=== PATIENT | female | born 1945 | race Caucasian/White ===

== ENCOUNTER 2019-07-24 17:25 | Inpatient (IN) | payer OTHER ==
[~2019-07-24] VITALS: Ht 152.4 cm; Wt 63.5 kg
[2019-07-24 17:36] VITALS: Ht 152.4 cm; Wt 63.5 kg
--- NOTE | 2019-07-24 17:42 | NUR ---
PER MEDIC PT WAS AT HOME TAKING A SHOWER THEN SHE USED THE RESTROOM AND NOTICED "BRIGHT RED BLOOD". PT STS THIS HAPPENED THIS AFTERNOON. PT STS THAT SHE DOES HAVE A HEADACHE. PT STS THAT SHE IS ALSO HAVING BACK PAIN AND SHOULDER PAIN. PT DENIES FALLING OR INJURING HER BACK/NECK/SHOULDERS. PT IS ACTIVELY CRYING ABOUT HER SON LOSING HIS . PT STS THAT SHE CHANGED HER MEDICATION FROM WARFARIN TO ELIQUIS FOR ABOUT ONE YEAR. PT STS THAT SHE HAS NEVER HAD BLEEDING BEFORE. PT STS THAT SHE HAD ABDOMINAL PAIN LAST NIGHT BUT HAD NO BLEEDING. PT IS PALE, COOL. PT IS ALERT AND ORIENTED, SPEAKING NI CLEAR AND FULL SENTENCES. WILL CONTINUE TO MONITOR.
--- NOTE | 2019-07-24 18:11 | NUR ---
LAB AT BEDSIDE. EKG IN PROGRESS.
[2019-07-24 18:49] LABS: CALCIUM 7.5 mg/dL (8.5-10.1); CARBON DIOXIDE 24.5 mmol/L (21-32); CHLORIDE SERUM 113 mmol/L (98-107); CREATININE SERUM 0.8 mg/dL (0.6-1.0); GLUCOSE SERUM 160 mg/dL (74-106); POTASSIUM SERUM 4.7 mmol/L (3.5-5.1); SODIUM SERUM 147 mmol/L (136-145)
[2019-07-24 18:54] LABS: ALBUMIN 2.8 g/dL (3.4-5.0); ALKALINE PHOSPHATASE 61 U/L (46-116); ALT/SGPT 25 U/L (14-59); AST/SGOT 17 U/L (15-37); BILIRUBIN TOTAL 0.6 mg/dL (0.20-1.00); CHOLESTEROL 111 mg/dL (<200); HDL CHOLESTEROL 36 mg/dL (40-60); MAGNESIUM 1.9 mg/dL (1.8-2.4); PHOSPHOROUS 4.1 mg/dL (2.5-4.9); TOTAL PROTEIN, SERUM 5.7 g/dL (6.4-8.2)
[2019-07-24 18:57] LABS: BASOPHIL % 0.2 % (0-2); PLATELET COUNT 207 x10^3mcL (130-400)
[2019-07-24 18:58] LABS: RED CELL DISTRIBUTION WIDTH 15.1 % (11.5-14.5)
--- NOTE | 2019-07-24 19:15 | NUR ---
RECEIVED REPORT FROM DUC ROBERTS RN, I WILL BE ASSUMING FURHTER CARE OF THIS PATIENT.
--- NOTE | 2019-07-24 19:16 | NUR ---
REPORT GIVEN TO MEKA JIMENEZ TO ASSUME CARE OF PT.
[2019-07-24 19:18] LABS: UA SPECIFIC GRAVITY 1.025 (1.005-1.035); microscopic required? YES; urine erythrocyte 3+ (NEGATIVE)
--- NOTE | 2019-07-24 19:20 | NUR ---
PT TAKEN TO US VIA GURNEY BY [employer]. PT IN NO DISTRESS.
--- NOTE | 2019-07-24 19:32 | NUR ---
PT RETURNED TO ER FLOOR FROM US VIA GURNEY WITHOUT INCIDIENT.
--- NOTE | 2019-07-24 20:31 | NUR ---
INFUSING PHENYLEPHRINE DRIP AT THIS TIME. INFUSING AT 50MCG/MIN BP:77/54 MAP:61. WILL CONT TO MONITOR.
--- NOTE | 2019-07-24 20:57 | NUR ---
DR PELAYO AT BEDSIDE DICUSSING PLAN OF CARE. PT AWARE SHE WILL BE HOPSITALIZED TO STABLIZE HER BLOOD PRESSURE AND BLEEDING.
--- NOTE | 2019-07-24 21:01 | NUR ---
PHENYLEPHIRINE TITRATED TO 75MCG/MIN (22.5ML/HR) INFUSING NO PROB TO LAC, NO INFILTRATION OR PAIN NOTED. BP: 84/51 MAP:63 NS BOLUS INFUSING TO RAC NO INFILTRATION OR PAIN NOTED AT IV SITE. PT IS AAOX4, NO DISTRESS NOTED, RESP E/U, SKIN INTACT. PT ON FULL CM, NSR, WILL CONT TO MONITOR.
--- NOTE | 2019-07-24 21:30 | NUR ---
GAVE REPORT TO NEAL JIMENEZ IN ICU WHO WILL BE ASSUMING FURTHER CARE OF THIS PATIENT.
--- NOTE | 2019-07-24 22:24 | NUR ---
Received pt alert and oriented x4. No distress noted. Kept clean and dry. All needs attended and anticipated. Seen and examined by Dr. Alvarado with new orders. New orders noted and carried out. Admission care rendered,pt cooperative and very polite at this time. Pt still ongoing NS 150ml/hr and Brandon synephrine 50mcg/min at this time. All meds given as ordered. Will continue to monitor.
--- NOTE | 2019-07-24 23:13 | NUR ---
Spoke to Dr. Hanson and updated him on pt status. stated that he will see the patient in the morning.
[2019-07-24 23:22] VITALS: BP 98/54
[2019-07-25 00:07] LABS: BASOPHIL % 1.1 % (0-2); PLATELET COUNT 200 x10^3mcL (130-400)
[2019-07-25 00:13] LABS: RED CELL DISTRIBUTION WIDTH 15.3 % (11.5-14.5)
[2019-07-25 03:52] VITALS: BP 103/75
[2019-07-25 05:49] LABS: BASOPHIL % 1.1 % (0-2); PLATELET COUNT 192 x10^3mcL (130-400)
[2019-07-25 05:50] LABS: RED CELL DISTRIBUTION WIDTH 15.5 % (11.5-14.5)
[2019-07-25 06:02] LABS: CALCIUM 7.1 mg/dL (8.5-10.1); CARBON DIOXIDE 22.1 mmol/L (21-32); CHLORIDE SERUM 115 mmol/L (98-107); CREATININE SERUM 0.7 mg/dL (0.6-1.0); GLUCOSE SERUM 105 mg/dL (74-106); POTASSIUM SERUM 4.4 mmol/L (3.5-5.1); SODIUM SERUM 146 mmol/L (136-145)
[2019-07-25 07:15] VITALS: BP 102/71
--- NOTE | 2019-07-25 07:15 | NUR ---
RC'D PT RESTING IN BED WITH NO APPARENT SIGNS OF DISTYRESS. PT ALERT/AWAKE. PT A/A/O/X4, SPEECH CLEAR AND APPROPRIATE. PT DENIES DIZZINESS/BAILEY. PT ABLE TO FOLLOW VERBAL COMMANDS AND ABLE TO MAKE NEEDS KNOWN. PUPILS 3MM AND BRISK BILAT. PERRLA. NO FACIAL DROOP NOTED. EENT FREE OF DRAINAGE. RESP E/U. LUNGS CTA. ON RA, PT DENIES SOB. SPO2 96%, NO RESP DISTRESS NOTED. AFIB ON EQUIPMENT WASHER. PT DENIES CP. HOLA-SYNEPHRINE INFUSING AT 100MCG/MIN. PALP PULSES, NO EDEMA NOTED. SKIN WARM TO TOUCH AND CONSISTENT WITH ETHNICITY. CAP REFILL <3. D5NS INFUSING @100. AMBULATORY. PT NPO AT THIS TIME. ABDOMEN SOFT AND NONTENDER. ACTIVE BS. DENIES N/V. NO BM AT THIS TIME. PT VOIDS FREELY, DENIES BURNING AT THIS TIME. SKIN W/D/I. IV TO RAC/LAC INTACT AND PATENT, DRESSING CDI. BED IN LOWEST POSIITON. WILL CONT TO MONITOR
--- NOTE | 2019-07-25 09:35 | NUR ---
BLOOD TRANSFUSION COMPLETE AT THIS TIME. PT ASYMPTOMATIC. VSS. FAMILY PRESENT AT BEDSIDE. WILL CONT TO MONITOR
--- NOTE | 2019-07-25 10:07 | NUR ---
TOOL REPAIR TECHNICIAN PRESENT AT BEDSIDE
[2019-07-25 10:18] LABS: PLATELET COUNT 161 x10^3mcL (130-400)
[2019-07-25 10:25] LABS: RED CELL DISTRIBUTION WIDTH 15.4 % (11.5-14.5)
[2019-07-25 11:00] VITALS: BP 114/74
--- NOTE | 2019-07-25 11:20 | NUR ---
DR FRITZ AT BEDSIDE TO ASSESS PATIENT. PATIENT UPDATE AND POC DISCUSSED BEDSIDE WITH PATIENT AND HER . ALL QUESTIONS AND CONCERNS ADDRESSED. NEW ORDER RECEIVED FOR 1 LITER NS BOLUS. WILL CARRY OUT ORDER.
[2019-07-25 11:23] LABS: BAND NEUTROPHIL 2 % (0-10); BASOPHIL 0 % (0-2); MONOCYTE 2 % (0-7); SEGMENTED NEUTROPHILS 63 % (37-75)
--- NOTE | 2019-07-25 12:00 | NUR ---
NS BOLUS INITIATED AT THIS TIME PER MD ORDER. CURRENT VS FOLLOWED : BP 99/73 (82), HR99, R24, SPO2 97%. WILL CONT TO MONITOR
--- NOTE | 2019-07-25 12:37 | NUR ---
PT HAD APPROX 100ML OF DARK STOOL. PT CLEANED AT THIS TIME. DR AJ NOTIFIED AND MADE AWARE.
--- NOTE | 2019-07-25 12:58 | NUR ---
DR AJ AND MED TEAM AT BEDSIDE FOR PROCEDURE. WILL CONT TO MONITOR
--- NOTE | 2019-07-25 13:37 | NUR ---
PROCEDURE COMPLETE AT THIS TIME. VSS. PT ON 2L O2 VIA NC, SPO2 100%. RESP E/U. NO APPARENT S/S OF DISTRESS. WILL CONT TO MONITOR
--- NOTE | 2019-07-25 13:38 | NUR ---
DR AJ UPDATING PTS OF FINDINGS OF PROCEDURE AT THIS TIME. PT AND FAMILY UPDATED ON POC. ALL QUESTIONS AND CONCERNS ADDRESSED. WILL CONT TO MONITOR
--- NOTE | 2019-07-25 13:39 | NUR ---
DR AJ SPOKE WITH PATIENT'S AND PROVIDED UPDATE OF EGD PROCEDURE.
--- NOTE | 2019-07-25 14:01 | NUR ---
PATIENT'S BP 124/67, MAP 86. HOLA TITRATED FROM 40 MCG TO 20 MCG. WILL MONITOR PATIENT CLOSELY.
--- NOTE | 2019-07-25 14:18 | NUR ---
DR MORALES AT BEDSIDE TO ASSESS PATIENT. PATIENT PROVIDED UPDATE WITH POC DISCUSSED.
[2019-07-25 15:30] VITALS: BP 97/52
--- NOTE | 2019-07-25 18:02 | NUR ---
DEVELOPING MACHINE TENDER PRESENT AT BEDSIDE FOR BLOOD DRAW
[2019-07-25 18:43] LABS: PLATELET COUNT 151 x10^3mcL (130-400)
[2019-07-25 18:44] LABS: RED CELL DISTRIBUTION WIDTH 15.3 % (11.5-14.5)
[2019-07-25 19:20] LABS: BAND NEUTROPHIL 0 % (0-10); BASOPHIL 0 % (0-2); MONOCYTE 4 % (0-7); PLATELET MORPHOLOGY PLATELETS NORMAL; SEGMENTED NEUTROPHILS 69 % (37-75); rbc morphology (normal/abnorm) NORMAL (NORMAL)
--- NOTE | 2019-07-25 19:20 | NUR ---
REPORT GIVEN TO RIOS JIMENEZ. ALL QUESTIONS AND CONCERNS ADDRESSED.
--- NOTE | 2019-07-25 19:43 | NUR ---
RECEIVED REPORT FROM ALESIA JIMENEZ. PT IS ALERT AND ORIENTED X4. LETHARGIC. PUPILS REACTIVE TO LIGHT. PT IS BREATHING E.U ON RA. LUNG SOUNDS CLEAR TO BILATERAL UPPER LOBES, DIMINISHED TO BILATERAL LOWER LOBES. S1 S2 HEART SOUNDS AUSCULTATED. IN STABLE A FIB. PULSES MODERATE X4. CAP REFILL <3 SECS X4. SKIN IS WARM AND PALE. PERIPHERAL IV TO RIGHT AND LEFT AC PATENT, DRESSING CDI. PROTONIX INFUSING AT 10 ML/HR AND D5 NS INFUSING AT 100 ML/HR. ABD IS SOFT AND ROUNDED WITH ACTIVE BOWEL SOUNDS X4Q. PT VOIDS FREELY USING BEDSIDE COMMODE. SKIN INTACT. ALL QUESTIONS AND CONCERNS ANSWERED.
--- NOTE | 2019-07-25 19:50 | NUR ---
PT COMPLAINING OF PAIN TO HER THROAT, AND REQUESTING MEDICATIONS. PRN MORPHINE PROVIDED. EDUCATED ON SIDE EFFECTS. CALL LIGHT WITHIN REACH. WILL CONTINUE TO MONITOR.
--- NOTE | 2019-07-25 21:51 | NUR ---
MEDICATED PT WITH NORCO. PT COMPLAINING OF PAIN TO THROAR FROM EGD. WILL CONTINUE TO MONITOR.
--- NOTE | 2019-07-26 02:00 | NUR ---
INITIATED BLOOD TRANSFUSION PER DR ORDER. TEMP 98.2.PULSE 98, BP: 89/59, RR: 17, O2: 98%. WILL CONTINUE TO MONITOR FOR ADVERSE EFFECTS.
[2019-07-26 02:14] LABS: ovalocyte/elliptocyte 1+; rbc morphology (normal/abnorm) ABNORMAL (NORMAL)
--- NOTE | 2019-07-26 04:00 | NUR ---
BLOOD TRANSFUSION COMPLETED. VITAL SIGNS INCLUDE TEMP: 98.4, PULSE: 70, BP: 95/52, RR: 19, O2: 98%. NO ADVERSE EFFECTS NOTED.
[2019-07-26 05:29] LABS: BASOPHIL % 0.4 % (0-2)
[2019-07-26 05:30] LABS: PLATELET COUNT 124 x10^3mcL (130-400); RED CELL DISTRIBUTION WIDTH 15.4 % (11.5-14.5)
[2019-07-26 05:44] LABS: CALCIUM 7.3 mg/dL (8.5-10.1); CARBON DIOXIDE 23.8 mmol/L (21-32); CHLORIDE SERUM 117 mmol/L (98-107); CREATININE SERUM 0.6 mg/dL (0.6-1.0); GLUCOSE SERUM 78 mg/dL (74-106); MAGNESIUM 2.7 mg/dL (1.8-2.4); PHOSPHOROUS 2.4 mg/dL (2.5-4.9); POTASSIUM SERUM 3.8 mmol/L (3.5-5.1); SODIUM SERUM 148 mmol/L (136-145)
[2019-07-26 07:55] VITALS: BP 93/53
--- NOTE | 2019-07-26 08:03 | NUR ---
RAC IV REMOVED AT THIS TIME. CATHETER PARTIALLY OUT OF SKIN, KINKED. GAUZE AND TAPE IN PLACE OVER SITE, CATHETER OF IV INTACT. NO S/S LOCAL INFECTION AT IV REMOVAL SITE.
--- NOTE | 2019-07-26 09:45 | NUR ---
PT C/O NAUSEA, ADMINISTERED 12.5 MG PHENERGAN. PT C/O SEVERE PAIN TO IV SITE, IV REMOVED. PT HAS NO IV ACCESS AT THIS TIME. CATHETER FOR RAC IV INTACT, GAUZE AND TAPE PUT OVER SITE. PT REPORTS ALLEVIATION OF PAIN. WILL CONTINUE TO MONITOR.
--- NOTE | 2019-07-26 09:45 | NUR ---
2 IV START ATTEMPTS MADE BY RN, BOTH UNSUCCESSFUL.
--- NOTE | 2019-07-26 10:35 | NUR ---
ASPHALT DISTRIBUTOR TENDER AT BEDSIDE DOING CARDIAC ECHO.
--- NOTE | 2019-07-26 12:28 | NUR ---
PT TRANSFERRING TO [facility], PT STABLE AT THIS TIME. REPORT GIVEN TO INSURANCE HEALTHCARE CONSULTANT.
[2019-07-26 12:35] VITALS: BP 103/68
--- NOTE | 2019-07-26 12:37 | NUR ---
RECEIVED PT FROM ICU, AMBULATED FROM WC TO BED WITH MINIMAL ASSISTANCE, COMPLAINING OF NAUSEA, ZOFRAN IVP GIVEN IN ICU BEFORE PT WAS TRANSPORTED, NO RESPRIATORY DISTRESS NOTED, LUNG SOUNDS CTA, TOLERATING RA, A+OX4, PULSES MODERATE AND EQUAL KIMBERLEE, NO EDEMA NOTED, A FIB, SKIN INTACT, TOLERATING CLEAR LIQUID DIET, BOWEL SOUNDS ACTIVE, IV IN DILIA WITH D5NS @ 40 ML/HR, SITE WNL, VOIDING FREELY, CALM AND COOPERATIVE AT THIS TIME, VS STABLE, CALL LIGHT WITHIN REACH.
--- NOTE | 2019-07-26 14:14 | NUR ---
Initial Nutrition Assessment: IC03/A KANDI [place]AR[place]O IA HR Dx: Rectal bleeding PMHx: AFIB, CAD, HTN PSHx: none Labs: NA 148H, P 2.4L, HGB 8.5L Meds: Ativan, cephulac, D 5%, morphine Diet: Clear liquid PO Intake: (07/25) dinner (clear liquid) 60% Ht: 152.4 cm (60") Wt: 63.5 kg (140#) BMI: 27.3 kg/m2 Bed scale: 63.5 kg IBW: 100# (45 kg) %IBW: 140 UBW: unable to access Age: 73/F Food Allergies: NKFA Skin: intact Hakeem: 23 Edema: none GI: dark tarry liquid stool Last BM: 07/26 Per H&P, Pt is a 73 YO female h/o AFIB was on Coumdin and recently switched to Eliquis. She presented to the ED with rectal bleedings ongoing throughout the day. RDN Visit (07/26): Per BARBARA Mike, patient's diet has been changed to full liquid by Dr. Hanson. Patient is drinking clear liquids. Dr. Hanson recommended small frequent feedings due to history of previous GI surgeries. Problem with: N/V/D/C: none at this time per RN, liquid stools d/t medications per Dr. Hanson Problems with: Chewing/Swallowing: no Current appetite: unable to access Recent wt change: unable to access %wt change: n/a Vitamin/Supplement use: unable to access Special diet at home: unable to access Physical activity: unable to access Nutrition education given: not possible at this time d/t patient condition Food-drug interactions: none Education given: n/a Estimated Nutritional Needs Based on current body weight 63.5 kg Energy: 0237-6810 kcal/d (25-30 kcal/kg) Protein: 76-89 g/d (1.2-1.4 g/kg) - preserve LBM, rectal bleeding Fluid: 6837-1178 ml/d (1 ml/kcal) or per doctor Nutrition Diagnosis 1. Increased nutrient needs related to rectal bleeding as evidenced by estimated calorie and protein needs. Intervention 1. Recommend continuing full liquid diet. Ensure Enlive will be given in between meals instead of with meals. Discussed recommendations with Dr. Hanson. Monitor/Evaluate Goal: PO intake at least 75% of estimated needs Monitor: PO intake, Labs, GI function F/U in 2-3 days as high risk 07/28-
--- NOTE | 2019-07-26 14:14 | NUR ---
1. Recommend continuing full liquid diet. Ensure Enlive will be given in between meals instead of with meals. Discussed recommendations with Dr. Hanson.
[2019-07-26 16:20] VITALS: BP 117/66
[2019-07-26 16:21] VITALS: BP 106/70
--- NOTE | 2019-07-26 16:54 | NUR ---
ASSISTED PT TO BATHROOM AND BACK TO BED, ASSISTED PT TO CHANGE GOWN, NO RESPRIATORY DISTRESS NOTED, AT BEDSIDE, CALL LIGHT WITHIN REACH.
--- NOTE | 2019-07-26 17:19 | NUR ---
PT RESTING IN BED, NO RESPIRATORY DISTRESS NOTED, DENIES PAIN, DENIES NAUSEA. PT STATES SHE HAS HAD 3 FORMED BMS TODAY WITH DARK RED BLOOD. CALL LIGHT WITHIN REACH.
--- NOTE | 2019-07-26 18:43 | NUR ---
PT RESTING IN BED, NO RESPIRATORY DISTRESS NOTED, DENIES PAIN, DENIES NAUSEA, CALL LIGHT WITHIN REACH.
--- NOTE | 2019-07-26 19:05 | NUR ---
PT RECEIVED A/O X4, ABLE TO MAKE NEEDS KNOWN. TELE #13, AFIB, DENIES ANY CP/PRESSURE. PULSES PALPABLE, NO EDEMA PRESENT. BREATHING IS EVEN AND UNLABORED, NO RESP DISTRESS NOTED. ABD SOFT AND NONDISTENDED, DENIES N/V. VOIDS FREELY, BRP. AMBULATORY WITH STEADY GAIT. SKIN IS WARM AND DRY, INTACT. PT DENIES ANY PAIN AT THIS TIME. PT ADMITTED FOR RECTAL BLEED, NO ACTIVE BLEEDING OBSERVED. IVF INFUSING WELL TO DILIA, PATENT AND INTACT, SITE WNL. NO ACUTE DISTRESS NOTED. BED IN LOWEST SETTING, SIDE RAILS UP X2, CALL LIGHT WITHIN REACH. WILL CONT TO MONITOR.
--- NOTE | 2019-07-26 19:21 | NUR ---
ENDORSED CARE TO JEFF JIMENEZ.
--- NOTE | 2019-07-26 19:42 | NUR ---
PT C/O ANXIETY, PRN ATIVAN PO GIVEN ORDERED. NO ACUTE DISTRESS NOTED. WILL CONT TO MONITOR.
[2019-07-26 20:28] VITALS: BP 91/64
--- NOTE | 2019-07-26 21:40 | NUR ---
PT C/O INSOMNIA AND REQUESTING SLEEPING PILL. DR RAO CALLED AND MADE AWARE, ORDERS RECEIVED.
[2019-07-27] VITALS (7 sets, daily range): BP systolic 90–135; BP diastolic 56–72
--- NOTE | 2019-07-27 00:33 | NUR ---
PT RESTING IN BED WITH EYES CLOSED, BUT IS EASILY AROUSABLE. BREATHING IS EVEN AND UNLABORED, NO RESP DISTRESS NOTED. IVF INFUSING WELL, SITE WNL. NO ACUTE DISTRESS NOTED. CALL LIGHT WITHIN REACH. WILL CONT TO MONITOR.
--- NOTE | 2019-07-27 06:23 | NUR ---
PT SLEPT WELL THROUGHOUT THE EVENING. BREATHING IS EVEN AND UNLABORED, NO RESP DISTRESS NOTED. NO ACUTE CHANGES ENCOUNTERED DURING SHIFT. ALL NEEDS MET AND ANTICIPATED. PT COMPLIANT WITH NURSING CARE. IVF INFUSING WELL, SITE WNL. CALL LIGHT WITHIN REACH. WILL ENDORSE CARE TO AM NURSE.
[2019-07-27 06:58] LABS: CALCIUM 7.8 mg/dL (8.5-10.1); CARBON DIOXIDE 30.2 mmol/L (21-32); CHLORIDE SERUM 112 mmol/L (98-107); CREATININE SERUM 0.6 mg/dL (0.6-1.0); GLUCOSE SERUM 83 mg/dL (74-106); POTASSIUM SERUM 4.1 mmol/L (3.5-5.1); SODIUM SERUM 146 mmol/L (136-145)
--- NOTE | 2019-07-27 07:15 | NUR ---
RECEIVED PT FROM ENGINEERING DOCUMENT CONTROL CLERK. PT AWAKE, ALERT. A/OX4. PT ON TELE 13, DENIES CHEST PAIN. PT ON ROOM AIR WITH NO RESP DISTRESS NOTED. IV ACCESS DILIA, CDI INFUSING D5NS AT 40ML/HR. PERIPHERAL PULSES PALPABLE, NO EDEMA NOTED. ACTIVE BS NOTED. PT DENIES BM AT THIS TIME, UNABLE TO ASSESS STOOL. PT IS AMBULATORY WITH BRP. PT DENIES ANY PAIN AT THIS TIME. SAFETY MEASURES IN PLACE, BED LOW AND LOCKED. CALL LIGHT WITHIN REACH.
[2019-07-27 07:21] LABS: BASOPHIL % 0.3 % (0-2); PLATELET COUNT 132 x10^3mcL (130-400); RED CELL DISTRIBUTION WIDTH 15.4 % (11.5-14.5)
--- NOTE | 2019-07-27 07:28 | NUR ---
PT IN NO ACUTE DISTRESS. CONTINUITY OF CARE ENDORSED TO REJI JIMENEZ.
--- NOTE | 2019-07-27 10:15 | NUR ---
PT NOTED TO HAVE ANXIETY. PT CRYING STATES SHE HAS HISTORY OF DEPRESSION AND HAS BEEN TAKING ZOLOFT FOR YEARS. ATIVAN ADMINISTERED ORDERED PRN. WILL CONTINUE TO MONITOR.
--- NOTE | 2019-07-27 11:15 | NUR ---
FAMILY AT BEDSIDE. PT RESTING, REPORTS SOME RELIEF FROM ANXIETY AFTER ATIVAN ADMINISTRATION. WILL CONTINUE TO MONITOR.
--- NOTE | 2019-07-27 12:04 | NUR ---
DR AJ HERE TO SEE PATIENT, AWARE PT HGB DROPPED TO 7.8. PT RESTING COMFORTABLY AT THIS TIME.
--- NOTE | 2019-07-27 14:02 | NUR ---
IV TO RIGHT UPPER ARM LEAKING. IV REMOVED WITH CATHETER INTACT. NEW IV STARTED TO RIGHT HAND. 24G, SALINE LOCKED. PT TOLERATED WELL.
--- NOTE | 2019-07-27 15:58 | NUR ---
FAMILY AT BEDSIDE, NO ACUTE DISTRESS OR DISCOMFORT NOTED AT THIS TIME. SAFETY MEASURES MAINTAINED.
--- NOTE | 2019-07-27 18:46 | NUR ---
PT REPORTS RELIEF AFTER ADMINISTRATION OF NORCO FOR BACK PAIN. FAMILY AT BEDSIDE. PT STABLE AT THIS TIME. ALL NEEDS MET THROUGHOUT SHIFT. WILL CONTINUE TO MONITOR AND ENDORSE CARE TO LEARNING DISABILITIES TEACHER.
--- NOTE | 2019-07-27 19:10 | NUR ---
RECEIVED REPORT FROM DAY SHIFT RN, ALL QUESTIONS AND CONCERNS ADDRESSED
--- NOTE | 2019-07-27 19:39 | NUR ---
PT IS RM 208 BED A RESTING IN SEMI FOWLERS POSITION. PT IS A/O X4, SPEECH IS CLEAR AND FOLLOWS COMMANDS. CHEST RISE AND FALL EQUAL AND UNLABORED. LS CLEAR BILATERAL . PT ON TELE 13 IN A-FIB VS STABLE AT THIS TIME. NO SIGN OF ACUTE DISTRESS. BED LEFT IN THE LOWEST POSITION AND CALL LIGHT WITH IN REACH.
--- NOTE | 2019-07-27 21:15 | NUR ---
PT REMOVED AND THROW DATA OPERATIONS LEADER ON THE FLOOR, ATTEMPTED TO PUT DATA OPERATIONS LEADER BACK ON BUT PT REFUSED TO HAVE IT AND STATED THAT SHE DOESN'T NEED IT AT ALL, EXPLAINED THE RISK AND BENEFIT BUT PT STILL REFUSED, PT ALSO REFUSED TO SIGN THE REFUSAL TREATMENT FORM, PT IS AAO X 4 AND VERY VERBALLY RESPONSIVE, DR RAO MADE AWARE AND UPDATES GIVEN.
--- NOTE | 2019-07-27 23:10 | NUR ---
PT FOUND SITTING IN CHAIR AND WHEN ASKED IF SHE IS OKAY, SHE STS "I'M WAITING FOR MY RIDE. WHEN ASKED WHO IS PICKING HER UP SHE STS "IT NONE OF YOUR BUSINESS," AND THAT SHE WANTS TO LEAVE. I EXPLAINED TO PT IF SHE LEAVES/GOES AMA THAT SHE IS STILL IN CRITCAL CONDITION AND ALL RISK EXPLAINED TO HER INCLUDING . PT STS "I DONT CARE."
--- NOTE | 2019-07-27 23:23 | NUR ---
PT'S EX- CALLED, STITUATION EXPLAINED TO HIM AND STS THAT HE WILL COME DOWN TO TALK TO HER
--- NOTE | 2019-07-28 | NUR ---
PT SIGNED OUT AMA, ALL RISKED EXPLAINED TO PT INCLUDING . PT STILL SIGNED AMA. PT IS A/O X4, SPEECH IS CLEAR AND IS OF SOUND MIND TO SIGN OUT AMA. PT'S EX- HERE TO PICK HER UP. PT LEFT MST WITHOUT INCIDENT. DR RAO MADE AWARE OF PT AMAing OUT OF HOSP.
== END 2019-07-27 23:54 | disposition left against medical advice (07) | DRG 393 ==
LOC: ED 17:25 → DU 20:00 → IC 20:00 → DU 07-26 12:31
PROVIDERS: Emergency Medicine; Internal Medicine Critical Care Medicine; Internal Medicine Gastroenterology; ADMIT Internal Medicine
PROC: 0W3P8ZZ Control Bleeding in Gastrointestinal Tract, Via Natural or Artificial Opening Endoscopic (ICD-10-PCS; principal; 2019-07-25 12:30)
PROC: 0DB68ZX Excision of Stomach, Via Natural or Artificial Opening Endoscopic, Diagnostic (ICD-10-PCS; 2019-07-25 12:30)
PROC: 30233N1 Transfusion of Nonautologous Red Blood Cells into Peripheral Vein, Percutaneous Approach (ICD-10-PCS; 2019-07-25 12:30)
DX: K95.89 Other complications of other bariatric procedure (principal); K28.4 Chronic or unspecified gastrojejunal ulcer with hemorrhage; R57.8 Other shock; D62 Acute posthemorrhagic anemia; D68.32 Hemorrhagic disorder due to extrinsic circulating anticoagulants; I95.89 Other hypotension; I11.9 Hypertensive heart disease without heart failure; I25.10 Atherosclerotic heart disease of native coronary artery without angina pectoris; I10 Essential (primary) hypertension; I48.91 Unspecified atrial fibrillation; Z68.27 Body mass index [BMI] 27.0-27.9, adult; Z98.84 Bariatric surgery status; Z79.01 Long term (current) use of anticoagulants; Y83.2 Surgical operation with anastomosis, bypass or graft as the cause of abnormal reaction of the patient, or of later complication, without mention of misadventure at the time of the procedure; Y92.009 Unspecified place in unspecified non-institutional (private) residence as the place of occurrence of the external cause
CPT/HCPCS: 43235; 97116-GP; C9113; C9132; G0378; J0171; J1200; J1610; J2250; J2270; J2310; J2370; J2405; J2550; J2916; J3010; J3490; J7030; J7040; J7042; J7050; P9016; Q0092; Q0162